=== PATIENT | male | born 1990 | race Two or more races ===

== ENCOUNTER 2025-05-09 07:06 | Outpatient (CLI) | payer OTHER | END 2025-05-09 07:11 | disposition home or self-care (01) | LOC: EDSEX 07:06 → RAD 07:06 | PROVIDERS: ATTEND Orthopaedic Surgery | DX: S52.531A Colles' fracture of right radius, initial encounter for closed fracture (principal); S52.532A Colles' fracture of left radius, initial encounter for closed fracture ==

== ENCOUNTER → 2025-05-10 10:20 | Outpatient (CLI) | payer OTHER ==
[2025-05-10 11:19] LABS: BASO % 0.4 % (0.1-1.2); EOS # 0.27 (0.04-0.54); EOS % 4.9 % (0.7-7.0); HEMATOCRIT 43.3 % (40.1-51.0); HEMOGLOBIN 14.5 g/dL (13.7-17.5); LYMPH # 1.96 (1.18-3.74); LYMPH % 35.3 % (19.3-53.1); MEAN CORPUSCULAR HEMOGLOBIN 29.5 pg (25.6-32.2); MONO # 0.34 (0.24-0.82); MONO % 6.1 % (4.7-12.5); NEUT # 2.95 (1.56-6.13); NEUT % 52.9 % (34.0-71.1); PLATELET COUNT 286 K/uL (163-369); RED BLOOD COUNT 4.91 M/uL (4.63-6.08); RED CELL DISTRIBUTION WIDTH 12.1 % (11.6-14.4)
[2025-05-10 11:39] LABS: INR 1.01; PARTIAL THROMBOPLASTIN TIME 29.9 SECONDS (22.0-34.0)
[2025-05-10 11:41] LABS: URINE APPEARANCE Clear; URINE BILIRRUBIN Negative (NEGATIVE); URINE COLOR Yellow; URINE GLUCOSE Negative (NEGATIVE); URINE KETONE Negative (NEGATIVE); URINE LEUKOCYTE Negative; URINE NITRATE Negative; URINE PROTEIN Negative (NEGATIVE); URINE UROBILINOGEN 0.2 E.U./dl
[2025-05-10 11:46] LABS: URINE BACTERIA 9.7 uL (0.0-1933); URINE EPITHELIAL CELLS 1.8 uL (0.0-38.8); URINE RBC 66.8 uL (0.0-20.8); URINE WBC 10.5 uL (0.0-23.2)
[2025-05-10 12:02] LABS: ALBUMIN 4.1 gm/dL (3.4-5.0); BILIRUBIN TOTAL 0.99 mg/dL (0.3-1.2); CALCIUM 9.5 mg/dL (8.5-10.1); CREATININE SERUM 0.78 mg/dL (0.70-1.30); GFR 113.27; GLOBULINA 3.1 G/DL (2.4-3.5); POTASSIUM 4.56 mEq/L (3.5-5.1); TOTAL PROTEIN 7.2 gm/dL (6.4-8.2)
[2025-05-10 12:57] LABS: URINE BLOOD TRACES
== END | disposition home or self-care (01) ==
LOC: RAD 10:20 → EDSEX 10:20
PROVIDERS: ATTEND Orthopaedic Surgery
DX: D64.9 Anemia, unspecified (principal); E88.9 Metabolic disorder, unspecified; D68.8 Other specified coagulation defects; N39.0 Urinary tract infection, site not specified; E11.8 Type 2 diabetes mellitus with unspecified complications; Z22.322 Carrier or suspected carrier of Methicillin resistant Staphylococcus aureus; I10 Essential (primary) hypertension; Z76.89 Persons encountering health services in other specified circumstances

== ENCOUNTER 2025-05-16 05:07 | Day surgery (SDC) | payer OTHER ==
[2025-05-16] MEDS ORDERED: BUPIVACAINE HCL/MPF 0.5% 30ML VIAL ONE (06:39)
[2025-05-16] MEDS ORDERED: CEFAZOLIN SODIUM 1,000 MG VIAL ONE ×2 (06:56→07:11)
[2025-05-16] MEDS ORDERED: ISOPROPYL ALCOHOL 30 ML OUNCE TOP ONE (07:15)
[2025-05-16] MEDS ORDERED: MORPHINE SULFATE 4 MG/ML VIAL IV ONE (11:15)
== END 2025-05-16 13:30 | disposition home or self-care (01) ==
LOC: CIR.AMB 05:07
PROVIDERS: ATTEND Orthopaedic Surgery
DX: S52.571A Other intraarticular fracture of lower end of right radius, initial encounter for closed fracture (principal); M24.531 Contracture, right wrist
CPT/HCPCS: 25609; 25280; 20902; L8699

== ENCOUNTER 2025-06-15 09:23 | Outpatient (CLI) | payer OTHER | END 2025-06-15 09:26 | disposition home or self-care (01) | LOC: RAD 09:23 | PROVIDERS: ATTEND Orthopaedic Surgery | DX: S52.531D Colles' fracture of right radius, subsequent encounter for closed fracture with routine healing (principal); S52.532D Colles' fracture of left radius, subsequent encounter for closed fracture with routine healing ==

== ENCOUNTER 2025-09-01 07:19 | Outpatient (CLI) | payer OTHER | END 2025-09-01 07:22 | disposition home or self-care (01) | LOC: RAD 07:19 | PROVIDERS: ATTEND Orthopaedic Surgery | DX: S52.531D Colles' fracture of right radius, subsequent encounter for closed fracture with routine healing (principal); S52.532D Colles' fracture of left radius, subsequent encounter for closed fracture with routine healing; X58.XXXD Exposure to other specified factors, subsequent encounter ==